=== PATIENT | female | born 1995 | race Two or more races ===

== ENCOUNTER 2020-10-10 16:53 | Emergency (ER) | payer MEDICAID, OTHER ==
[~2020-10-10] VITALS: Ht 162.6 cm; Wt 79.4 kg
[2020-10-10 16:59] VITALS: BP 101/56
== END 2020-10-10 23:13 | disposition left against medical advice (07) ==
LOC: ER 16:53
DX: J02.9 Acute pharyngitis, unspecified (principal); Z53.21 Procedure and treatment not carried out due to patient leaving prior to being seen by health care provider

== ENCOUNTER 2021-01-04 19:45 | Observation (INO) | payer MEDICAID ==
[~2021-01-04] VITALS: Ht 162.6 cm; Wt 105.2 kg
[2021-01-04 20:28] LABS: Urine Bacteria FEW /hpf (None Seen); Urine Blood Negative /uL (Negative); Urine Specific Gravity 1.011 (1.001-1.035); Urine WBC 43 /hpf (0 - 5)
[2021-01-04 20:37] LABS: Alcohol, Urine < 3.0 mg/dL (0-10); Amphetamine Screen, Urine NEGATIVE (NEGATIVE); Barbiturate Scree,Urine NEGATIVE (NEGATIVE); Benzodiazephine Screen, Urine NEGATIVE (NEGATIVE); Cannabinoid Screen, Urine NEGATIVE (NEGATIVE); Cocaine Screen, Urine NEGATIVE (NEGATIVE); Opiate Scree,Urine NEGATIVE (NEGATIVE); Phencyclidine Screen, Urine NEGATIVE (NEGATIVE)
== END 2021-01-04 22:09 | disposition home or self-care (01) ==
LOC: LDRP 19:45
PROVIDERS: ADMIT Obstetrics & Gynecology; ATTEND Obstetrics & Gynecology
DX: O99.891 Other specified diseases and conditions complicating pregnancy (principal); M54.9 Dorsalgia, unspecified; R10.30 Lower abdominal pain, unspecified; Z3A.37 37 weeks gestation of pregnancy; Z98.891 History of uterine scar from previous surgery; Z79.899 Other long term (current) drug therapy
CPT/HCPCS: 59025; 76815; 80307; 81001; 94760; G0378; G0379